=== PATIENT | female | born 1990 | race Caucasian/White ===

== ENCOUNTER → 2018-03-25 09:30 | Outpatient (CLI) | payer BC, SELFPAY ==
[2018-03-29 14:11] LABS: HPV Reflexed? NOT INDICATED
== END ==
PROVIDERS: Visit Provider Obstetrics & Gynecology
DX: Z12.4 Encounter for screening for malignant neoplasm of cervix (principal)
CPT/HCPCS: 88175; G0145

== ENCOUNTER → 2018-06-26 13:44 | Outpatient (CLI) | payer BC, SELFPAY ==
[2018-06-26 17:35] LABS: Chlamydia Trachomatis by PCR Negative (Negative); Neisserai gonorrhoeae by PCR Negative (Negative); Probe Check PASS; Sample Adequacy Control PASS; Specimen Processing Control PASS
== END ==
PROVIDERS: Visit Provider Obstetrics & Gynecology
DX: Z11.3 Encounter for screening for infections with a predominantly sexual mode of transmission (principal)
CPT/HCPCS: 87491; 87591

== ENCOUNTER → 2018-11-14 10:42 | Outpatient (CLI) | payer SELFPAY ==
[2015-07-11 19:36] VITALS: BMI 34.6
[2018-11-14 11:16] LABS: Hematocrit 34.6 % (37-47); Hemoglobin 11.2 g/dl (12.0-15.0); Mean Corp Hgb Conc 32.4 g/gl (32-36); Mean Corpuscular Hgb 29.2 pg (27.0-32.0); Mean Corpuscular Volume 90.3 fL (81-99); Mean Platelet Vol. 9.6 fl (6.2-12.0); Platelet Count 293 K/mm3 (150-450); RBC Distribution Width CV 12.7 % (11.6-14.6); RBC Distribution Width SD 40.9 fl (35.1-43.9); Red Blood Count 3.83 M/mm3 (4.2-5.4); White Blood Count 9.3 K/mm3 (4.4-11.0)
[2018-11-14 11:17] LABS: Scan Indicated on CBC? Y/N NO
[2018-11-14 11:21] LABS: Glucose Challenge Gest 1H 50g 93 mg/dL (70-140)
== END ==
PROVIDERS: Visit Provider Obstetrics & Gynecology
DX: Z34.82 Encounter for supervision of other normal pregnancy, second trimester (principal)
CPT/HCPCS: 36415; 82950; 85027

== ENCOUNTER 2018-12-02 17:10 | Outpatient (CLI) | payer SELFPAY ==
[2015-07-11 19:36] VITALS: BMI 34.6
[2018-12-02 17:50] VITALS: BMI 33.1
[2018-12-02 18:33] LABS: Color, Urine Yellow (Yellow); Glucose, Dipstick 100 mg/dl (Normal); Ketone-Dipstick 15 mg/dl (Negative); Leukocyte Esterase-Dipstick Negative /ul (Negative); Nitrite-Dipstick Negative (Negative); Occult Blood-Urine Negative /ul (Negative); Protein-Dipstick Negative (Negative); Urine Bilirubin Dipstick Negative (Negative); Urine Clarity Clear (Clear); Urine Urobilinogen Normal (Normal)
--- NOTE | 2018-12-02 21:24 | OB.TRI.HP_ITS ---
History of Present Illness Date of Service: 12/02/18 Was patient seen by the physician?: Yes Reason For Visit: R/O LABOR/abdominal pain Date of Service: 12/02/18 Final ANT: 02/02/19 Final ANT Source: US <20 weeks Gestational age: 31 Weeks and 1 Days History of Present Illness: Complains of right lower abdominal pain. No contration like pains. No signs of PPROM. Good movement at home. Allergies bee pollen Allergy (Verified 07/11/15 19:38) Swelling Laboratory Studies: Laboratory Tests 12/02/18 Range/Units 18:15 Urine Color Yellow (Yellow) Urine Clarity Clear (Clear) Urine pH 6.0 (5.0 - 8.0) Ur Specific [place] 1.010 (1.002-1.030) Urine Protein Negative (Negative) mg/dl Urine Glucose (UA) 100 H (Normal) mg/dl Urine Ketones 15 H (Negative) mg/dl Urine Occult Blood Negative (Negative) /ul Urine Nitrite Negative (Negative) Urine Bilirubin Negative (Negative) mg/dL Urine Urobilinogen Normal (Normal) mg/dl Ur Leukocyte Esterase Negative (Negative) /ul Physical Exam General: Alert, Oriented x3, Cooperative, No apparent distress Abdomen: Soft, Non Tender, Non-Distended, Gravid, Appropriate for Gestational Age Extremities:: No edema Neurological: Neuro grossly intact DETECTIVE AUTOMOBILE SECTION: Normal external genitalia NST - FHR Rate Baby A Baseline: 130s Variability:: Moderate Accelerations:: 15 x 15 Decelerations:: None NST Reactive:: Yes, Appropriate for gestational age FHR Category:: Category I Uterine Activity:: none Impression/Plan US shows head and body on right side of abdomen. Head near position on abdomen where feels pain. No signs of labor. No fevers. Reassuring status. Pain likely due to position. Followup if pain worsens, developes fevers, contractions, or experiences decreased movement.
== END 2018-12-02 19:40 | disposition home or self-care (01) ==
LOC: WPOUT 17:20 → WP 17:21
PROVIDERS: Referring Provider Obstetrics & Gynecology; Visit Provider Obstetrics & Gynecology
DX: O26.893 Other specified pregnancy related conditions, third trimester (principal); R10.31 Right lower quadrant pain; Z3A.31 31 weeks gestation of pregnancy
CPT/HCPCS: 59025; 59050; 76815; 81002; 99218; G0378

== ENCOUNTER 2018-12-29 15:36 | Outpatient (CLI) | payer BC, SELFPAY ==
[2018-12-29 15:36] VITALS: BP 121/75; PULSE 84; RESP 18; TEMP 36.4; O2SAT 98; BMI 33.5
--- NOTE | 2018-12-29 16:04 | ED.DCSUM_ITS ---
- ER Visit Summary Date of Service: 12/29/18 Chief Complaint: Diarrhea, shortness of breath, abdominal tightness History of Present Illness: The patient is a 28 F who is currently 35 weeks . She is complaining of bright green stool with diarrhea for the past 2 weeks. Today she started getting tightness across her abdomen. She called her CRIMPING MACHINE OPERATOR FOR METAL was told to come the emergency room. She denies fever or chills. No recent antibiotics. She is feeling normal movement. Physical Examination: Vital signs unremarkable. Patient sitting in bedside chair. She is in no acute distress. Heart is regular rate and rhythm. Lung sounds are clear. Abdomen is soft and gravid. She has no focal tenderness in the right upper quadrant or epigastrium. There is no tenderness over the abdomen. Test Results: Emergency Department Course and Treatment: Laboratory studies and stool studies have been ordered. I spoke with Dr. Mays to ensure we had appropriate monitoring for baby as well as appropriate work-up for mom. She advised that if we draw blood work here patient could be sent to labor and delivery triage where she can be appropriately monitored. Patient and were updated. Treatment Plan: [] Disposition: Discharge to L&D triage Impression: 1. Diarrhea 2. 35-week This note was generated with TAKO dictation software. It may contain incorrect words, spelling, and punctuation that were not noted in review of the chart prior to signing ED Disposition - Plan for ED Patient: Disposition: Home or Assisted Living Instructions: ED Gastroenteritis Report Pend Referrals: Care Physician,No Primary [NON-STAFF] -
[2018-12-29 16:25] VITALS: RESP 18
[2018-12-29] MEDS: 0.9% Normal Saline 1,000 ML 150 ML IV (16:38)
--- NOTE | 2018-12-29 16:42 | ED.RN ---
called pt report to ob. pt transported to ob via wheelchair.
[2018-12-29 17:01] LABS: Absolute Lymphocyte Count 1.73 X10^3/ul (0.83-4.51); Absolute Neutrophil Count 6.6 X10^3/uL (2.0-7.7); Basophil# 0.02 X10^3/uL; Basophil% 0.2 % (0-1); Eosinophil# 0.13 X10^3/uL; Eosinophils% 1.4 % (0-5); Hematocrit 35.3 % (37-47); Hemoglobin 11.9 g/dl (12.0-15.0); Lymphocyte # 1.73 X10^3/ul (4.0); Lymphocyte % 18.6 % (19-41); Mean Corp Hgb Conc 33.7 g/gl (32-36); Mean Corpuscular Hgb 28.4 pg (27.0-32.0); Mean Corpuscular Volume 84.2 fL (81-99); Mean Platelet Vol. 9.8 fl (6.2-12.0); Monocyte# 0.78 X10^3/uL; Monocyte% 8.4 % (0-10); Neutrophil # 6.63 X10^3/uL (2.7-7.7); Neutrophil % 71.2 % (47-70); Platelet Count 294 K/mm3 (150-450); RBC Distribution Width CV 13.1 % (11.6-14.6); RBC Distribution Width SD 39.9 fl (35.1-43.9); Red Blood Count 4.19 M/mm3 (4.2-5.4); White Blood Count 9.3 K/mm3 (4.4-11.0)
[2018-12-29 17:03] LABS: POSITIVE COUNT NO; POSITIVE DIFFERENTIAL NO; POSITIVE MORPHOLOGY NO
[2018-12-29 17:12] VITALS: BMI 33.2
[2018-12-29 17:19] LABS: AST(SGOT) 15 U/L (15-37); Alanine Aminotransfer ALT/SGPT 15 U/L (13-56); Alkaline Phosphatase 115 U/L (45-117); Anion Gap 6 (5-15); BUN 9 mg/dL (7-18); BUN/Creat Ratio 13.2 RATIO (10-20); Bilirubin, Direct 0.08 mg/dL (0.00-0.30); Calcium,Total 8.4 mg/dL (8.5-10.1); Chloride 106 mmol/L (98-107); Creatinine, Serum 0.68 mg/dL (0.55-1.02); EST Glomerular Filtration Rate 109 mL/min (>60); Est Glom Filt Rate - Afr Amer 131 mL/min (>60); Estimated Creatinine Clearance 119.78 ml/min; Globulin 4.3 g/dL (2.2-4.2); Glucose 79 mg/dL (74-106); Lipase 105 U/L (73-393); Potassium 3.8 mmol/L (3.5-5.1); Protein, Total 7.3 g/dL (6.4-8.2); Sodium Level 136 mmol/L (136-145)
[2018-12-29 18:51] LABS: Bacteria 0 SEEN /hpf (None Seen); Color, Urine Yellow (Yellow); Glucose, Dipstick 100 mg/dl (Normal); Ketone-Dipstick 15 mg/dl (Negative); Leukocyte Esterase-Dipstick Negative /ul (Negative); Mucous, Urine 0 SEEN /hpf (<or=2+); Nitrite-Dipstick Negative (Negative); Occult Blood-Urine Negative /ul (Negative); Protein-Dipstick Negative (Negative); Red Blood Cells-Urine 0 SEEN /hpf (0-5); Urine Bilirubin Dipstick Negative (Negative); Urine Clarity Clear (Clear); Urine Urobilinogen Normal (Normal); Urine pH 6.5 (5.0 - 8.0); White Blood Cells 0 SEEN /hpf (0-5)
[2018-12-29 19:08] LABS: Squamous Epithelial Cells - UA 0-5 SEEN /hpf (5-10)
--- NOTE | 2018-12-30 16:26 | OB.TRI.NOTE ---
History of Present Illness Date of Service: 12/29/18 Was patient seen by the physician?: No Reason For Visit: DIARRHEA/SOB/ RO LABOR Date of Service: 12/29/18 Final ANT: 02/02/19 Final ANT Source: US <20 weeks Gestational age: 35 Weeks and 0 Days History of Present Illness: 28 yo female at 35 wk EGA presents to ED at [facility] [place] with CC of green diarrhea, shortness of breath, abdominal tightness She is complaining of bright green stool with diarrhea for the past 2 weeks. Today she started getting tightness across her abdomen. She called her FRAMING SPECIALIST was told to come the emergency room. She denies fever or chills. No recent antibiotics. She is feeling normal movement. CBC, CMP wnl. UA no bacteria and had not been able to produce a stool specimen. Sent to OB dept for NST , monitoring and to rule out labor. Allergies bee pollen Allergy (Verified 12/29/18 15:39) Swelling Laboratory Studies: Laboratory Tests 12/29/18 12/29/18 12/29/18 Range/Units 18:15 16:25 16:25 WBC 9.3 (4.4-11.0) K/mm3 RBC 4.19 L (4.2-5.4) M/mm3 Hgb 11.9 L (12.0-15.0) g/dl Hct 35.3 L (37-47) % MCV 84.2 (81-99) fL MCH 28.4 (27.0-32.0) pg MCHC 33.7 (32-36) g/gl RDW 13.1 (11.6-14.6) % RDW Differential 39.9 (35.1-43.9) fl Plt Count 294 (150-450) K/mm3 MPV 9.8 (6.2-12.0) fl Immature Gran % (Auto) 0.200 (0.0-0.9) % Neut % (Auto) 71.2 H (47-70) % Lymph % (Auto) 18.6 L (19-41) % [place] % (Auto) 8.4 (0-10) % Eos % (Auto) 1.4 (0-5) % Baso % (Auto) 0.2 (0-1) % Absolute Neuts (auto) 6.6 (2.0-7.7) X10^3/uL Absolute Lymphs (auto) 1.73 (0.83-4.51) X10^3/ul Total Counted Not Reportable Sodium 136 (136-145) mmol/L Potassium 3.8 (3.5-5.1) mmol/L Chloride 106 (98-107) mmol/L Carbon Dioxide 24.0 (21.0-32.0) mmol/L Anion Gap 6 (5-15) BUN 9 (7-18) mg/dL Creatinine 0.68 (0.55-1.02) mg/dL Estim Creat Clear Calc 119.78 ml/min Est GFR (MDRD) Af Amer 131 (>60) mL/min Est GFR (MDRD) Non-Af 109 (>60) mL/min BUN/Creatinine Ratio 13.2 (10-20) RATIO Glucose 79 (74-106) mg/dL Calcium 8.4 L (8.5-10.1) mg/dL Total Bilirubin 0.30 (0.20-1.00) mg/dL Direct Bilirubin 0.08 (0.00-0.30) mg/dL AST 15 (15-37) U/L ALT 15 (13-56) U/L Alkaline Phosphatase 115 (45-117) U/L Total Protein 7.3 (6.4-8.2) g/dL Albumin 3.0 L (3.2-5.0) g/dL Globulin 4.3 H (2.2-4.2) g/dL Lipase 105 (73-393) U/L Urine Color Yellow (Yellow) Urine Clarity Clear (Clear) Urine pH 6.5 (5.0 - 8.0) Ur Specific [place] 1.010 (1.002-1.030) Urine Protein Negative (Negative) mg/dl Urine Glucose (UA) 100 H (Normal) mg/dl Urine Ketones 15 H (Negative) mg/dl Urine Occult Blood Negative (Negative) /ul Urine Nitrite Negative (Negative) Urine Bilirubin Negative (Negative) mg/dL Urine Urobilinogen Normal (Normal) mg/dl Ur Leukocyte Esterase Negative (Negative) /ul Urine RBC 0 SEEN (0-5) /hpf Urine WBC 0 SEEN (0-5) /hpf Ur Squamous Epith Cells 0-5 SEEN (5-10) /hpf Urine Bacteria 0 SEEN (None Seen) /hpf Urine Mucus 0 SEEN (<or=2+) /hpf Physical Exam Vitals: Vital Signs Temp Pulse Resp BP Pulse Ox 97.5 F L 84 18 121/75 H 98 12/29/18 15:36 12/29/18 15:36 12/29/18 16:25 12/29/18 15:36 12/29/18 15:36 NST - FHR Rate Baby A Variability:: Moderate Accelerations:: 15 x 15 Decelerations:: None NST Reactive:: Yes, Appropriate for gestational age FHR Category:: Category I Uterine Activity:: irritability, irreg UCs. Impression/Plan 28 yo female with diarrhea, abdominal tightening NST reactive. False labor Home Stool specimen sent returned positive for C Diff ABX to be sent in for pt through her usual pharmacy on 12/30/18 Return to hospital if inc s/sx of labor Keep next ofc appt.
--- NOTE | 2018-12-30 16:30 | OB.TRI.HP_ITS ---
History of Present Illness Date of Service: 12/29/18 Was patient seen by the physician?: No Reason For Visit: DIARRHEA/SOB/ RO LABOR Date of Service: 12/29/18 Final ANT: 02/02/19 Final ANT Source: US <20 weeks Gestational age: 35 Weeks and 0 Days History of Present Illness: 28 yo female at 35 wk EGA presents to ED at [facility] with CC of green d iarrhea, shortness of breath, abdominal tightness She is complaining of bright green stool with diarrhea for the past 2 weeks. Today she started getting tightness across her abdomen. She called her DATA INTEGRATION DEVELOPER was told to come the emergency room. She denies fever or chills. No recent antibiotics. She is feeling normal movement. CBC, CMP wnl. UA no bacteria and had not been able to produce a stool specimen. Sent to OB dept for NST , monitoring and to rule out labor. Allergies bee pollen Allergy (Verified 12/29/18 15:39) Swelling Laboratory Studies: Laboratory Tests 12/29/18 12/29/18 12/29/18 Range/Units 18:15 16:25 16:25 WBC 9.3 (4.4-11.0) K/mm3 RBC 4.19 L (4.2-5.4) M/mm3 Hgb 11.9 L (12.0-15.0) g/dl Hct 35.3 L (37-47) % MCV 84.2 (81-99) fL MCH 28.4 (27.0-32.0) pg MCHC 33.7 (32-36) g/gl RDW 13.1 (11.6-14.6) % RDW Differential 39.9 (35.1-43.9) fl Plt Count 294 (150-450) K/mm3 MPV 9.8 (6.2-12.0) fl Immature Gran % (Auto) 0.200 (0.0-0.9) % Neut % (Auto) 71.2 H (47-70) % Lymph % (Auto) 18.6 L (19-41) % [place] % (Auto) 8.4 (0-10) % Eos % (Auto) 1.4 (0-5) % Baso % (Auto) 0.2 (0-1) % Absolute Neuts (auto) 6.6 (2.0-7.7) X10^3/uL Absolute Lymphs (auto) 1.73 (0.83-4.51) X10^3/ul Total Counted Not Reportable Sodium 136 (136-145) mmol/L Potassium 3.8 (3.5-5.1) mmol/L Chloride 106 (98-107) mmol/L Carbon Dioxide 24.0 (21.0-32.0) mmol/L Anion Gap 6 (5-15) BUN 9 (7-18) mg/dL Creatinine 0.68 (0.55-1.02) mg/dL Estim Creat Clear Calc 119.78 ml/min Est GFR (MDRD) Af Amer 131 (>60) mL/min Est GFR (MDRD) Non-Af 109 (>60) mL/min BUN/Creatinine Ratio 13.2 (10-20) RATIO Glucose 79 (74-106) mg/dL Calcium 8.4 L (8.5-10.1) mg/dL Total Bilirubin 0.30 (0.20-1.00) mg/dL Direct Bilirubin 0.08 (0.00-0.30) mg/dL AST 15 (15-37) U/L ALT 15 (13-56) U/L Alkaline Phosphatase 115 (45-117) U/L Total Protein 7.3 (6.4-8.2) g/dL Albumin 3.0 L (3.2-5.0) g/dL Globulin 4.3 H (2.2-4.2) g/dL Lipase 105 (73-393) U/L Urine Color Yellow (Yellow) Urine Clarity Clear (Clear) Urine pH 6.5 (5.0 - 8.0) Ur Specific [place] 1.010 (1.002-1.030) Urine Protein Negative (Negative) mg/dl Urine Glucose (UA) 100 H (Normal) mg/dl Urine Ketones 15 H (Negative) mg/dl Urine Occult Blood Negative (Negative) /ul Urine Nitrite Negative (Negative) Urine Bilirubin Negative (Negative) mg/dL Urine Urobilinogen Normal (Normal) mg/dl Ur Leukocyte Esterase Negative (Negative) /ul Urine RBC 0 SEEN (0-5) /hpf Urine WBC 0 SEEN (0-5) /hpf Ur Squamous Epith Cells 0-5 SEEN (5-10) /hpf Urine Bacteria 0 SEEN (None Seen) /hpf Urine Mucus 0 SEEN (<or=2+) /hpf Physical Exam Vitals: Vital Signs Temp Pulse Resp BP Pulse Ox 97.5 F L 84 18 121/75 H 98 12/29/18 15:36 12/29/18 15:36 12/29/18 16:25 12/29/18 15:36 12/29/18 15:36 NST - FHR Rate Baby A Variability:: Moderate Accelerations:: 15 x 15 Decelerations:: None NST Reactive:: Yes, Appropriate for gestational age FHR Category:: Category I Uterine Activity:: irritability, irreg UCs. Impression/Plan 28 yo female with diarrhea, abdominal tightening NST reactive. False labor Home Stool specimen sent returned positive for C Diff ABX to be sent in for pt through her usual pharmacy on 12/30/18 Return to hospital if inc s/sx of labor Keep next ofc appt.
== END 2018-12-29 19:05 | disposition home or self-care (01) ==
LOC: ED 17:03 → WPOUT 17:03 → WP 17:06
PROVIDERS: Emergency Provider Emergency Medicine; Family Provider Family Medicine; PCP Family Medicine; Referring Provider Obstetrics & Gynecology; Visit Provider Obstetrics & Gynecology
DX: O98.813 Other maternal infectious and parasitic diseases complicating pregnancy, third trimester (principal); A04.72 Enterocolitis due to Clostridium difficile, not specified as recurrent; O47.03 False labor before 37 completed weeks of gestation, third trimester; Z3A.35 35 weeks gestation of pregnancy
CPT/HCPCS: 59025; 59050; 80048; 80076; 81001; 83630; 83690; 85025; 87177; 87209; 87493; 87506; 99218; 99283; J7030; A4216; G0378

== ENCOUNTER 2019-01-27 05:00 | Inpatient (IN) | payer BC, SELFPAY ==
[2019-01-27] VITALS (22 sets, daily range): BP systolic 111–157; BP diastolic 51–90; PULSE 58–78; RESP 14–20; TEMP 36.3–36.9; O2SAT 95–99; BMI 33.8
[2019-01-27] MEDS: Lactated Ringers 1,000 ML 999 ML IV (06:00)
[2019-01-27 06:48] LABS: Absolute Lymphocyte Count 1.64 X10^3/ul (0.83-4.51); Absolute Neutrophil Count 5.2 X10^3/uL (2.0-7.7); Basophil# 0.05 X10^3/uL; Basophil% 0.6 % (0-1); Eosinophil# 0.13 X10^3/uL; Eosinophils% 1.7 % (0-5); Hematocrit 32.5 % (37-47); Hemoglobin 10.8 g/dl (12.0-15.0); Lymphocyte # 1.64 X10^3/ul (4.0); Lymphocyte % 21.2 % (19-41); Mean Corp Hgb Conc 33.2 g/gl (32-36); Mean Corpuscular Hgb 27.2 pg (27.0-32.0); Mean Corpuscular Volume 81.9 fL (81-99); Mean Platelet Vol. 10.5 fl (6.2-12.0); Monocyte# 0.75 X10^3/uL; Monocyte% 9.7 % (0-10); Neutrophil # 5.15 X10^3/uL (2.7-7.7); Neutrophil % 66.5 % (47-70); Platelet Count 258 K/mm3 (150-450); RBC Distribution Width CV 12.6 % (11.6-14.6); RBC Distribution Width SD 36.7 fl (35.1-43.9); Red Blood Count 3.97 M/mm3 (4.2-5.4); White Blood Count 7.7 K/mm3 (4.4-11.0)
[2019-01-27 06:50] LABS: POSITIVE COUNT NO; POSITIVE DIFFERENTIAL NO; POSITIVE MORPHOLOGY NO
[2019-01-27 07:02] LABS: Partial Thromboplast Time 29.2 Seconds (24.1-36.2)
[2019-01-27] MEDS: Lactated Ringers 1,000 ML 150 ML IV (07:15)
[2019-01-27] MEDS: Sodium Citrate/Citric Acid 30 ML UDC PO (07:20)
--- NOTE | 2019-01-27 07:29 | OP.PCM_ITS ---
Delivery Classification: Scheduled Final ANT: 02/02/19 Final ANT Source: US <20 weeks Gestational age: 39 Weeks and 1 Days Indications for : Repeat Elective , Desires elective sterilization Description of Procedure: Surgeon: Ian Reyes MD, FACOG Test Automation Architect: MCKENZIE Russell Anesthesia: Barb Mera MD Type of Anesthesia: Spinal with Duramorph Procedure: Repeat Low Transverse Cervical Section and Bilateral Tubal Occlusion with Filshie Clips Findings: Viable female infant with Apgars of 8/9 in occiput anterior presentation with clear amniotic fluid and normal three-vessel placenta. Indication: This is a 28-year-old who presents for her second at 39+ weeks gestation. care has otherwise been uneventful except the patient had successfully treated C. difficile about 2 months ago. The patient has been counseled regarding the risk and indications of this procedure including the possibility of bleeding infection and injury to surrounding structures such as bowel bladder. She also understands the permanent nature of her tubal including the 1 to 2% possibility of failure and availability of other nonpermanent control options. All questions were answered. Procedure: Patient was taken to the operating room where after spinal anesthesia was placed, the patient was prepped and draped in usual sterile fashion and a Headley catheter was placed. The abdomen was entered through the patient's prior Pfannenstiel incision and peritoneum was entered bluntly. The scar from her prior surgery was excised. After developing a bladder flap on the lower uterine segment a low transverse incision was made on the uterus and head was easily delivered onto the operative field the nose mouth and oropharynx were bulb suctioned. Subsequently a viable female infant was born with Apgars of 8/9. The was noted to cry move all extremities vigorously on the operative field. The umbilical cord was doubly clamped and ligated and infant handed to the nursery personnel who were present for the delivery. Placenta was delivered and noted to be 3 vessels and normal. Uterus was exteriorized and remaining placental tissue was removed. The uterus was then closed in 2 layers first with running locked 0 Vicryl suture followed by a second imbricating layer with 0 Vicryl suture. 0 Vicryl suture was then used in a horizontal mattress interrupted fashion to affect final hemostasis of the uterine incision line. Normal fallopian tubes and ovaries were visualized and Filshie clips were placed approximately 1 to 2 cm from the uterine fundus on each fallopian tube. The uterus was returned to the pelvis. Hemostasis was noted and rectus abdominis muscles were reapproximated in the midline with interrupted Number 0 Vicryl suture in a horizontal mattress fashion. Fascia was closed with running Number 1 PDS Strata fix suture. Subcutaneous tissue was irrigated with copious amouts of saline solution and then closed with running 3-0 Vicryl suture in 2 layers with the second layer being a horizontal mattress. Skin was closed with 4-0 monocryl suture in a running subcuticular fashion. Steri strips, telfa, and tape were placed across the incision. The patient tolerated the procedure well and was taken to the recovery room in satisfactory condition. Sponge, needle, and instrument counts were all reportedly correct. EBL was less than 500 cc. Spicemen to Pathology: None Complications: None Amniotic Membrane Rupture Type: Artificial Amniotic Fluid Description: Clear Placenta Disposition: [facility] Specimen(s) sent to pathology: None Drain: Headley to straight drain Fluids Replaced: Crystalloid Cord Entanglement: None Cord Vessel Description: 3 Vessels Esitmated Blood Loss (ml): 500 cc Infant Gender: Female (1 minute): 8 (5 minute): 9 Complications: None - Admit VTE Documentation VTE Present on Admission: Yes VTE Mechan Device Prophylaxis: SCD's
[2019-01-27] MEDS: Oxytocin 30 units/NS 500 ml 30 UNITS/500 ML IV.SOLN 167 UNITS IV (07:56)
--- NOTE | 2019-01-27 08:54 | DCINST_ITS ---
Discharge Diet: No Restrictions Discharge Activity: May not drive while taking narcotic pain medications., May Shower, May Take a Tub Bath May resume sexual activity in: 4-6 weeks Lifting Restrictions: 20 pounds Additional Activity Instructions:: Nothing in the vagina for 4-6 weeks. You may return to work/school in 6 weeks. Call your doctor if your incision/area has: Continuous Slow Oozing, Sudden Increased Bleeding, Increased Pain/ Swelling, Increased Redness, Foul Smelling Discharge Call your doctor if you observe: Fever of 101 or Higher, Inability to urinate, Inability to have a bowel movement, Using more than one pad per hour Additional Instructions: If you experience any of the following, contact your healthcare provider. * Bleeding that soaks a pad every hour for 2 hours * Unrelieved incision or abdominal pain * Swelling, redness, discharge or bleeding from your incision or episiotomy site * Your incision begins to separate * Problems urinating (including inability to urinate or burning while urinating). * Visual changes * Severe headache * Flu-like symptoms * Pain or redness in one of both of your breasts * Pain, warmth, tenderness or swelling in your legs, especially the calf area * Frequent nausea and vomiting * Symptoms of depression or anxiety If you experience any of the following, call 911 or go to the nearest Emergency Room. * Chest pain * Problems breathing * Seizure activity * Partial or complete paralysis of a body part, slurred speech, weakness or drooping of the face, or a sudden inability to walk or hold your balance Allergies/Adverse Reactions: Allergies bee pollen Allergy (Verified 01/27/19 05:22) Swelling Medications to take at Discharge Vits 1 tab PO DAILY 07/11/15 Ranitidine [Zantac] 150 mg PO PRN PRN 07/11/15 Cetirizine HCl [Zyrtec] 10 mg PO PRN PRN 12/29/18 Docusate Sodium [Colace] 100 mg PO BID PRN PRN #60 cap 01/27/19 RX: Oxycodone [Oxyir] 5 mg PO Q6H PRN PRN 7 Days #20 tab 01/27/19 The following prescriptions were given: RX: Oxycodone [Oxyir] 5 mg PO Q6H PRN PRN 7 Days #20 tab PRN Reason: Severe Pain (-06/11) Docusate Sodium [Colace] 100 mg PO BID PRN PRN #60 cap PRN Reason: Constipation Follow-Up: Call to make an appointment with your doctor for an incision check in 1-2 weeks. You will also need a 6 week post- follow up appointment. Test results from this visit will be discussed in further detail at your follow- up appointment, if applicable. Please Follow Up With: Ian Reyes MD - [phone] When: Call to make an appointment for an incision check in 2 weeks. Primary Care Physician: Stephanie Del Toro PA-C [Primary Care Provider] -
[2019-01-27] MEDS: Lactated Ringers 1,000 ML 100 ML IV ×2 (10:00→20:20)
[2019-01-27] MEDS: proMETHazine 25 MG/ML Syringe 12.5 MG IV (11:12)
--- NOTE | 2019-01-27 13:25 | NURSING ---
1030 Feeling dizzy and nauseated. Assessment negative. Moved from SF to LF position with some relief of nausea. Bleeding remains small, FF.
--- NOTE | 2019-01-27 13:28 | NURSING ---
1100 emesis 200 cc bile tinged liquid after eating 1 cup of ice chips.
--- NOTE | 2019-01-27 13:31 | NURSING ---
1115 - Phenergan 12.5 mg slow IVP for nausea and vomiting.
[2019-01-27] MEDS: Ketorolac 30 MG/ML Syringe IV ×2 (14:21→20:22)
[2019-01-27] MEDS: Ondansetron 4 MG/2 ML Vial IV (17:47)
[2019-01-27] MEDS: Famotidine 20 MG Tablet PO (20:28)
[2019-01-28] VITALS (7 sets, daily range): BP systolic 114–155; BP diastolic 69–76; PULSE 66–79; RESP 16–20; TEMP 36.3–36.7; O2SAT 96–100
[2019-01-28] MEDS: Ketorolac 30 MG/ML Syringe IV ×4 (03:04→21:02)
[2019-01-28 06:20] LABS: Hematocrit 29.2 % (37-47); Hemoglobin 9.5 g/dl (12.0-15.0); Mean Corp Hgb Conc 32.5 g/gl (32-36); Mean Corpuscular Hgb 27.2 pg (27.0-32.0); Mean Corpuscular Volume 83.7 fL (81-99); Mean Platelet Vol. 9.6 fl (6.2-12.0); Platelet Count 216 K/mm3 (150-450); RBC Distribution Width CV 13.1 % (11.6-14.6); RBC Distribution Width SD 39.4 fl (35.1-43.9); Red Blood Count 3.49 M/mm3 (4.2-5.4); White Blood Count 10.9 K/mm3 (4.4-11.0)
[2019-01-28 06:33] LABS: Scan Indicated on CBC? Y/N NO
[2019-01-28] MEDS: 0.9% Saline Lock 10 ML Syringe IV ×3 (08:35→21:02)
--- NOTE | 2019-01-28 09:19 | PCM.PN.OB ---
Subjective: Patient without complaints. Tolerating diet well. Denies flatus. Denies any PIH symptoms. - Physical Exam Vital Signs Temp Pulse Resp BP Pulse Ox 98.1 F 66 18 154/69 H 97 01/28/19 03:34 01/28/19 03:34 01/28/19 06:06 01/28/19 03:34 01/28/19 06:06 Oxygen Delivery Method Room Air Weight: 216 lb 0.848 oz Body Mass Index (BMI) 33.8 Intake and Output for Last 24 Hours 01/26/19 01/27/19 01/28/19 23:59 23:59 23:59 Intake Total 3399 / 3399 2049 / 2049 Output Total 725 / 725 1500 / 1500 Balance 2674 / 2674 550 / 550 Laboratory Tests Past 24 Hrs 01/28/19 06:00 WBC 10.9 RBC 3.49 L Hgb 9.5 L Hct 29.2 L MCV 83.7 MCH 27.2 MCHC 32.5 RDW 13.1 RDW Differential 39.4 Plt Count 216 MPV 9.6 Wound is clean, dry, intact. Good urine output. Hemoglobin okay. Blood pressure mildly elevated. Medical Necessity - Tobacco Use Smoking Status: Never smoker Assessment/Plan Doing well postoperative day #1 status post repeat and tubal. Continuing present care. Will monitor blood pressure closely and start medication if appropriate.
[2019-01-28] MEDS: Senna/Docusate Sodium 1 Tablet PO (14:12)
[2019-01-28] MEDS: oxyCODONE 5 MG Tablet PO ×2 (17:00→21:39)
[2019-01-28] MEDS: Famotidine 20 MG Tablet PO (18:27)
[2019-01-29 02:12] VITALS: BP 107/66; PULSE 83; RESP 16; TEMP 36.8; O2SAT 95
[2019-01-29] MEDS: 0.9% Saline Lock 10 ML Syringe IV ×2 (03:00→08:38)
[2019-01-29] MEDS: Ketorolac 30 MG/ML Syringe IV ×2 (03:01→08:38)
--- NOTE | 2019-01-29 08:07 | PCM.PN.OB ---
Subjective: Patient without complaints. Tolerating diet well. Positive flatus. Minimal vaginal bleeding. Ready to go home. - Physical Exam Vital Signs Temp Pulse Resp BP Pulse Ox 98.2 F 83 16 107/66 95 01/29/19 02:12 01/29/19 02:12 01/29/19 02:12 01/29/19 02:12 01/29/19 02:12 Oxygen Delivery Method Room Air Weight: 216 lb 0.848 oz Body Mass Index (BMI) 33.8 Intake and Output for Last 24 Hours 01/27/19 01/28/19 01/29/19 23:59 23:59 23:59 Intake Total 3399 / 3399 2050 / 2050 Output Total 725 / 725 2250 / 2250 Balance 2674 / 2674 -200 / -200 Wound is clean, dry, intact. Good urine output. Medical Necessity - Tobacco Use Smoking Status: Never smoker Assessment/Plan Doing well postoperative day #2 status post repeat and tubal. Will release to home with routine instructions.
[2019-01-29 10:00] VITALS: BP 115/70; PULSE 76; RESP 16; TEMP 36.6
[2019-01-29 13:42] VITALS: BP 131/87; PULSE 85; RESP 18; TEMP 36.6
--- NOTE | 2019-01-29 14:57 | CASEMGMT ---
Social Work Assessment Labor and Delivery Unit Date of Referral: 01/28/2019 Time of Referral: 0830 Referred By: verbal notification by nursing staff Date of Intervention: 01/29/2019 Time of Intervention: 1200 Reason for Referral: maternal history depression and anxiety History obtained from: medical records, mother of baby (MOB) Evelyn Varela, and father of baby (FOB) Sree Varela. Household composition: MOB, FOB, and older child Miles live in home. No reported issues or concerns regarding housing. Patient's parent/guardian status: MOB is 28 years old and FOB 27 years old, for 5 years. Now have 2 children together, Miles was born on 07.12.2015 and Baby girl Ike was born on 01.27.2019. No reported safety concerns in the home. Upon admission MOB denies any abuse history or in relationship with FOB. Medical History: JUANITA is G2, P1 to 2 after delivery of Zoella. care started at 13 weeks gestation. Zoella born via repeat caesarian section at 39 weeks gestation. Apgars 9 and 9 at 1 and 5 minutes of life. Educational Status: MOB graduated high school. No reported or indicated issue with reading, writing, or learning comprehension issues. Financial Status: MOB works at a [employer] in [place]. FOB works for [employer]. Infant Supplies: MOB reports to have needed baby supplies including car seat, breast pump, safe sleep spaces, clothes, diapers, and wipes for baby. Childcare/Caregiver(s): MOB and then when MOB is back work there is an established interface analyst the family uses. Transportation: No issues. Programs/Agencies Involved: No agency involvement. Plans to use [facility] for baby's aftercare needs. Children Services/Legal Issues: None reported or indicated. Behavioral Health Issues: Mental Health History: MOB reports history of depression and anxiety, and has been on medication in the past, prior to pregnancies. MOB reports did not really like the medicine as gave MOB a sense of false happiness. MOB reports that had some depression after Miles was born then mentioned that may have been the baby blues. MOB asked for FOB's input and FOB reports perception that MOB experienced more than the baby blues and that symptoms lasted for about 6 months. From further discussion, anxiety symptoms described and FOB reports that MOB had a hard time even allowing FOB to help out with care of baby. MOB admits that had many worries, most surrounding the health and safely of Miles when he was an . MOB denies that suicidal thoughts or thoughts of harm to others were ever present; just the opposite that wanted to make sure baby was okay. Substance Use History: None reported or indicted for MOB. Drug Screens: None noted in care record or at time of delivery for this MOB. Family/Social Stressors: MOB admits this was a hard one physically and eventually emotionally as MOB had a hard time, due to physical illness, playing with Miles, which impacted how MOB felt mood jimenez. Support Systems: MOB reports FOB is a strong support, MOB's mother and FOB's side of the family. FOB will be home the remainder of this week, MOB's mom the second week, and then FOB is taking the third week off again to help MOB out with transition home with two children. ASSESSMENT: MOB and FOB both cooperative with social work visit. FOB quiet and holding the baby but would give input when prompted or at appropriate times. MOB sought out FOB's input at times, but overall answered questions and engaged in conversation independently. MOB and FOB both aware of safe sleeping and shaken baby preventions. Educted MOB and FOB to risk factors in place for depression, signs and symptoms, and importance of letting others know if MOB is struggling. Discussed that it is not MOB's fault if mood and anxiety issues pop up again, that this can happen to anyone, but very important to get help and support. MOB states that would be willing to seek out counseling before medicine an may consider going back as does not want to get to the place that as before after Milse was born. MOB reports the mood and anxiety anxiety issues impacted MOB and FOB's relationship, as well as MOB admits it was at times hard to just enjoy being a parent. MOB admits to worrying a lot and that tries to take breaks when overwhelmed, has started to communicate worries to others, and also has purchased baby care items to help reduce concerns about the baby's safety when sleeping (monitors). MOB reports to have needed supplies to care for baby, and will have help for 2-3 weeks after going home. MOB receptive to social work education about online supports for mood and anxiety issues, accepting of resources offered which includes local counseling options. FOB held baby during social work visit, was gentle with baby and adjusted baby when baby started to fuss. FOB talked to baby gently and MOB sat and watched, appearing tense but did not try to take over. MOB offered input to FOB about why baby may be fussing, but did not take over. MOB reports to love Zoella and smiled when talking about feelings for baby. No voiced concerns by nursing staff regarding mother/child interactions for bonding. MOB accepted resources provided this date and does express willingness to seek out help and support as needed during this period. PLAN: MOB and baby to home with a [facility] resources list and depression packet given. No other services requested or indicated. -NASREEN Reyes, DIVE SUPERINTENDENT
== END 2019-01-29 14:00 | disposition home or self-care (01) | DRG 785 ==
PROVIDERS: Admitting Provider Obstetrics & Gynecology; Family Provider Family Medicine; PCP Family Medicine; Referring Provider Obstetrics & Gynecology; Visit Provider Obstetrics & Gynecology
PROC: 10D00Z1 Extraction of Products of Conception, Low, Open Approach (ICD-10-PCS; CPT 59514; principal; 2019-01-27 07:15)
DX: O34.211 Maternal care for low transverse scar from previous cesarean delivery (principal); Z3A.39 39 weeks gestation of pregnancy; Z37.0 Single live birth; Z30.2 Encounter for sterilization; Z86.19 Personal history of other infectious and parasitic diseases
CPT/HCPCS: 36415; 85025; 85027; 85610; 85730; 86850; 86900; 99218; J7120; A4216; G0378; J2405

== ENCOUNTER → 2019-02-03 22:34 | Outpatient (CLI) | payer BC, SELFPAY ==
[2019-01-27 05:22] VITALS: BMI 33.8
== END ==
PROVIDERS: Family Provider Family Medicine; PCP Family Medicine; Visit Provider Family Medicine
DX: Z39.1 Encounter for care and examination of lactating mother (principal)
CPT/HCPCS: 96152

== ENCOUNTER → 2020-04-05 | Outpatient (CLI) | payer OTHER, SELFPAY ==
[2019-01-27 05:22] VITALS: BMI 33.8
[2020-04-08 22:23] LABS: HPV Reflexed? NOT INDICATED
== END | disposition home or self-care (01) ==
LOC: LABSPEC 04-06 09:03
PROVIDERS: PCP Family Medicine; Visit Provider Obstetrics & Gynecology
DX: Z12.4 Encounter for screening for malignant neoplasm of cervix (principal)
CPT/HCPCS: 88175; G0145

== ENCOUNTER → 2020-11-08 | Outpatient (CLI) | payer OTHER, SELFPAY ==
[2019-01-27 05:22] VITALS: BMI 33.8
--- NOTE | 2020-11-08 10:00 | EMB_PTH ---
PATIENT: ANDREZ LAGOS LOC: [facility] U#:[id number] AGE/SX: 30/F ROOM: RE11/08/[address]: Dr. Ian Reyes MD : 1990 BED: DIS: 11/08/2020 SPEC #: [id number] RECD: 11/09/20 09:34 STATUS: TING RERedd #: [id number] ASAD: 11/08/20 10:[address]: Ian Reyes DEPT: SURGICAL PATHOLOGY RECD BY: Prachi Duran ENTERED: 11/09/20 09:44 SP TYPE: ENDOM BX/C EZEKIEL DR: Stephanie Del Toro PA-C Tissues: Endometrium, NOS Procedures: Surgery Specimen Level IV HEADER OPERATION: Endometrial biopsy PRE-OP DIAGNOSIS: N92.4 TISSUE SUBMITTED: Endometrial biopsy MICROSCOPIC DIAGNOSIS Endometrium, biopsy: Proliferative endometrium with focal glandular breakdown. AM:alona 11/10/2020 MICROSCOPIC DESCRIPTION Slides are reviewed. GROSS DESCRIPTION Received in fixative is one container labeled with the patient's name and designated EM biopsy. The specimen consists of multiple fragments of hemorrhagic soft tissue that in aggregate measure 1.5 x 1.2 x 0.2 cm. The specimen is totally submitted in one cassette. / SJ:alona 11/09/20 TC:5 CPT: 21222
== END | disposition home or self-care (01) ==
LOC: LABSPEC 11-09 09:11
PROVIDERS: PCP Family Medicine; Visit Provider Obstetrics & Gynecology
DX: N92.4 Excessive bleeding in the premenopausal period (principal)
CPT/HCPCS: 88305

== ENCOUNTER 2020-12-12 10:21 | Day surgery (SDC) | payer OTHER, SELFPAY ==
[2019-01-27 05:22] VITALS: BMI 33.8
[2020-12-08 11:16] LABS: Hematocrit 38.7 % (37-47); Hemoglobin 12.4 g/dL (12.0-15.0); Mean Corpuscular Hgb 29.9 pg (27.0-32.0); Mean Corpuscular Volume 93.3 fL (81-99); Mean Platelet Vol. 9.6 fl (6.2-12.0); Platelet Count 338 K/mm3 (150-450); RBC Distribution Width CV 12.8 % (11.6-14.6); RBC Distribution Width SD 43.5 fl (35.1-43.9); Red Blood Count 4.15 M/mm3 (4.2-5.4); White Blood Count 4.3 K/mm3 (4.4-11.0)
[2020-12-08 11:28] LABS: International Normalized Ratio 1.1; Prothrombin Time (Protime)PT. 13.1 SECONDS (11.7-14.9)
[2020-12-08 11:29] LABS: Partial Thromboplast Time 30.6 Seconds (24.1-36.2)
[2020-12-08 11:49] LABS: Thyroid Stim Hormone (TSH) 0.33 uIU/mL (0.358-3.74)
--- NOTE | 2020-12-11 13:36 | PCM.HP.BLA ---
History and Physical Date of Admission: 12/12/20 Surgical History and Physical Evelyn Varela, a 30 year old female 2 0 0 0 2, presents for HTA, Hysteroscopy and D and C on December, at 9:15. -- Menorrhagia -- heavy menses which began 8-9 months ago. Evelyn claims it started after stopped breast feeding and has been present 8-9 months. It occurs intermittently. It is located in the vagina.; It is located in the lower abdomen. Evelyn characterizes the quality brown discharge, cramping, heavy flow. Severity is moderate and not improving. Additional comments are: had tubal; can't remember to take pills. Additional comments are: U/S today shows 1-2 cm deep submucous fibroid. MEDICATIONS HISTORY: Patient is also takin. venlafaxine ER 75 mg capsule,extended release 24 hr, One pill by mouth once a day ALLERGIES: NKDA Infections - Chicken pox Illnesses - L brachial plexus - dx as Accidents - no injuries of consequence Hospitalizations - none Review of Systems: GENERAL - Denies fever, or chills SKIN - Denies skin changes EYES - Denies visual changes EARS - Denies difficulty hearing NOSE - Denies nasal congestion or bleeding MOUTH - Denies sore throat or difficulty swallowing NECK - Denies pain or swelling RESPIRATORY - Denies shortness of breath or wheezing CARDIOVASCULAR - Denies palpitations or chest pain GASTROINTESTINAL - Denies nausea, vomiting, diarrhea, constipation GENITOURINARY - Denies dysuria, frequency of urination, incontinence of urine MUSCULOSKELETAL - Denies joint or muscle pain NEUROLOGICAL - Denies localized numbness or weakness PSYCHIATRIC - Denies depression or anxiety ENDOCRINE - Denies heat or cold intolerance, weight loss or gain HEMATO-IMMUNOLOGIC - Denies excessive bleeding with cuts SOCIAL HISTORY: Alcohol Use - drinks occasionally not while Smoking - denies smoking Diet - balanced Diet Lifestyle - Exercise - minimal Seat Belt Use - always Employer - [employer] 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 Children Name(s) - Miles To(15), Zoavel(19) Control - Prior Tubal FAMILY HISTORY: Family history of pat uncle - cancer, unknown. MENSTRUAL HISTORY: LMP Known?- Definite Amount/Duration - 7 to 10 days, Regularity - Irregular, Frequency - variable days, LMP - 11/21/20, Age Onset Menarche - 16 PAST PREGNANCIES: Total Pregnancies - 2; Full Term Pregnancies - 2; Premature - 0; Abortions, Induced - 0; Abortions, Spontaneous - 0; Ectopics - 0; Multiple Births - 0; Living Children - 2 SURGICAL HISTORY: 1. 01/27/2019 ; Ian Reyes M.D. 2. 06/24/2014 R cystectomy ; Marsha Lugo MD 3. 07/12/2015 primary ; Ian Reyes M.D. PHYSICAL EXAM BP- 116/72 Sitting, Right arm, regular cuff Weight- 179.90808 lbs Height- 66 inch BMI:28.95 CONSTITUTIONAL - NAD, well nourished, and well developed SKIN - No rash, lesions, or ulcers HEENT - Normocephalic, PERRLA, EOMI NECK - No nodes, no nuchal rigidity and thyroid normal size and texture LYMPH NODES - Palpation of lymph nodes in neck and groins within normal limits LUNGS - CTA x2 without wheezes, crackles or rales CARDIAC - Regular rate and rhythm without rubs, murmurs, or gallops BREAST - No dominant masses, no tenderness, no axillary adenopathy, no nipple discharge, no skin changes ABDOMEN - Without hepatosplenomegaly, distention, masses, rebound, or guarding; normal bowel sounds; no hernias EXTREMITIES - No edema or calf tenderness NEUROLOGICAL - Cranial nerves II-XII grossly intact PSYCHIATRIC - A and O to time, place, person, mood and affect External Genital Vagina - non-tender without lesions Urethra/Urethral Meatus - non-tender Vagina - vaginal leal are pink and moist without loss of rugae and no evidence of atropy Cervix - without cervical motion tenderness and has normal size and features without evident lesions ASSESSMENT/PLAN: 1. Premenopause Menorrhagia and Submucous Leiomyoma Reviewed u/s and EMBx with patient. Menorrhagia likely due to small and deep submucous fibroid. Discussed that ablation should help with heavy menses but unsure if it will be sufficient snf. Pt desires we proceed with HTA understanding this limitation of the ablation. All questions asnwered.
[2020-12-12 10:55] VITALS: BP 116/89; PULSE 80; RESP 16; TEMP 36.9; O2SAT 98; BMI 28.2
[2020-12-12] MEDS: Lactated Ringers 1,000 ML 100 ML IV (11:17)
[2020-12-12] MEDS: Cefotetan 2 GM in 0.9% NS 100 ML IV (11:52)
--- NOTE | 2020-12-12 12:29 | OP.PCM_ITS ---
Report of Operation Date of Procedure: 12/12/20 Pre-Operative Diagnosis: Menorrhagia Post-Operative Diagnosis: Menorrhagia Surgery/Procedure Performed:: Diagnostic Hysteroscopy, Dilation and Curettage, Hydrothermal Ablation Description of Surgical Findings:: 8 cm endometrial cavity without polyps or fibroids noted. Cervix which protrudes to within 1 cm of the introitus which would make vaginal or laparoscopic-assisted hysterectomy possible if this were needed. Moderate cystocele. Type of Anesthesia:: General - LMA Anesthesiologist: Elin Garvin Specimen's removed: Endometrial curettings Estimated Blood Loss (mL): Minimal Fluids Replaced: Crystalloid Description of Procedure: Surgeon: Ian Reyes MD, FACOG Indication: This is a 30 year old patient who has been having problems with extremely heavy menses. Conservative measures have not been helpful. Endometrial sampling was benign and pelvic ultrasound showed that ablation may be helpful. Pt has been counseled regarding the risks, benefits and alternatives of this procedure and all questions answered. She understands that only about half of patients will have amenorrhea after this procedure. Procedure: Patient taken to the operating room where after induction of general anesthesia the patient was prepped and draped in the usual sterile fashion. Anterior cervix grasped and cervix was dilated to about 17 Bangladeshi size. Hysteroscopic hydrothermal ablation (HTA) unit was place in the cervix and the above findings were noted. HTA unit was removed and the uterus was gently curetted removing all contents. An HTA ablation cycle was then carried out at about 90 degrees Centigrade for 10 minutes with virtually no fluid loss during the procedure. After an appropriate cool down the HTA unit was removed with minimal bleeding noted. The patient tolerated the procedure well and was taken to the recovery room in satisfactory condition. Sponge, instruments and needle counts were all correct. There were no apparent complications of the surgery. Cefotan 2 gms IV was given prior to the procedure. Estimated Blood Loss: Minimal Specimen to Pathology: Endometrial Curettings Grafts/Implants Used: None - Complications None - Admit VTE Documentation VTE Present on Admission: Yes VTE Mechan Device Prophylaxis: SCD's
--- NOTE | 2020-12-12 12:33 | DCINST_ITS ---
Discharge Diet: No Restrictions Discharge Activity: Return to Normal Activity, May Shower, May Take a Tub Bath May resume sexual activity in: 4 weeks Call your doctor if you observe: Fever of 101 or Higher, Inability to urinate, Inability to have a bowel movement, Using more than one pad per hour Additional Instructions: Nothing in the vagina for 3-4 weeks please. Use Ibuprophen 800 mg orally every 8 hours as needed for pain. Can also add Tylenol 1000 mg every 8 hours if needed for pain. If Ibuprophen and Tylenol are not effective then use the Oxycodone but keep in mind it can cause serious constipation issues. Drink lots of water. Steps and walking are OK. Activity is encouraged but do not over do it in the next few days!! Allergies/Adverse Reactions: Allergies bee pollen Allergy (Verified 12/05/20 10:03) Swelling Medications to take at Discharge Cetirizine HCl [Zyrtec] 10 mg PO PRN PRN 12/29/18 L.acidoph,Paracasei, B.lactis [Probiotic] 1 each PO DAILY 12/05/20 Venlafaxine HCl [Effexor Xr] 75 mg PO DAILY 12/05/20 Oxycodone [Oxyir] 5 mg PO Q6H PRN PRN 7 Days #7 tab 12/12/20 The following prescriptions were given: Oxycodone [Oxyir] 5 mg PO Q6H PRN PRN 7 Days #7 tab PRN Reason: Pain Score 6-10 Transmission Status: Received by [id number] Primary Care Physician: Stephanie Del Toro PA-C [Primary Care Provider] - Test Results: Test results from this visit will be discussed in further detail at your follow- up appointment, if applicable. Please Follow Up With: Ian Reeys MD When: 3 to 4 weeks
[2020-12-12 12:38] VITALS: BP 108/82; BP 116/89; PULSE 67; RESP 16; TEMP 36.3; O2SAT 100
[2020-12-12 12:45] VITALS: BP 112/77; BP 116/89; PULSE 66; RESP 18; O2SAT 100
--- NOTE | 2020-12-12 12:50 | EMB_PTH ---
PATIENT: ANDREZ LAGOS LOC: [facility] [place] U#:[id number] AGE/SX: 30/F ROOM: RE12/12/[address]: Dr. Ian Reyes MD : 1990 BED: DIS: 12/12/2020 SPEC #: [id number] RECD: 12/12/20 14:25 STATUS: TING RERedd #: [id number] ASAD: 12/12/20 12:[address]: Ian Reyes DEPT: SURGICAL PATHOLOGY RECD BY: Prachi Duran ENTERED: 12/13/20 08:06 SP TYPE: ENDOM BX/C EZEKIEL DR: Stephanie Del Toro PA-C Tissues: Endometrium, NOS Procedures: Surgery Specimen Level IV HEADER OPERATION: Hysteroscopy, D & C hydroablation PRE-OP DIAGNOSIS: Premenopause menorrhagia and submucous leiomyoma TISSUE SUBMITTED: Endometrial curettings MICROSCOPIC DIAGNOSIS Endometrial curettings: Proliferative endometrium. SJ:alona 12/14/20 COMMENT Please make reference to previous specimen ([id number]) endometrium, biopsy with diagnosis of proliferative endometrium with focal glandular breakdown. MICROSCOPIC DESCRIPTION Slides are reviewed. GROSS DESCRIPTION Received in fixative is one container labeled with the patient's name and designated endometrial curettings. The specimen consists of multiple irregular fragments of light to dark noriega soft tissue that in aggregate measure 2.5 x 2 x 0.2 cm. The specimen is totally submitted in one cassette. / AM:alona 12/13/20 TC:4 CPT: 14986
[2020-12-12 13:00] VITALS: BP 115/76; BP 116/89; PULSE 56; RESP 16; O2SAT 100
[2020-12-12 13:11] VITALS: BP 113/78; BP 116/89; PULSE 54; RESP 16; TEMP 36.6; O2SAT 100
[2020-12-12] MEDS: oxyCODONE 5 MG Tablet PO (13:44)
[2020-12-12 14:25] VITALS: BP 116/89; BP 120/75; PULSE 76; RESP 16; TEMP 36.6; O2SAT 99
== END 2020-12-12 14:42 | disposition home or self-care (01) ==
LOC: SDC 10:21 → AC 10:22
PROVIDERS: PCP Family Medicine; Referring Provider Obstetrics & Gynecology; Visit Provider Obstetrics & Gynecology
PROC: 0U5B8ZZ Destruction of Endometrium, Via Natural or Artificial Opening Endoscopic (ICD-10-PCS; CPT 58563; principal; 2020-12-12 12:35)
DX: N92.4 Excessive bleeding in the premenopausal period (principal); D25.0 Submucous leiomyoma of uterus; F32.9 Major depressive disorder, single episode, unspecified; F41.9 Anxiety disorder, unspecified; Z20.822 Contact with and (suspected) exposure to COVID-19; Z79.899 Other long term (current) drug therapy
CPT/HCPCS: 00952; 58563; 36415; 84439; 84443; 84481; 85027; 85610; 85730; 86850; 86900; 86901; 87426; 88305; C9803; J7120; J2405

== ENCOUNTER → 2022-12-17 | Outpatient (CLI) | payer OTHER, MEDICAID, SELFPAY ==
[2022-12-21 13:07] LABS: HPV APTIMA, High Risk Negative (Negative)
== END | disposition home or self-care (01) ==
PROVIDERS: PCP Family Medicine; Visit Provider Nurse Practitioner Women's Health
DX: Z12.4 Encounter for screening for malignant neoplasm of cervix (principal)
CPT/HCPCS: 87624; 88175; G0145